=== PATIENT | female | born 1950 | race Caucasian/White ===

== ENCOUNTER 2021-02-05 23:39 | Inpatient (IN) | payer MEDICARE, OTHER ==
[~2021-02-05] VITALS: Ht 157.5 cm; Wt 71.7 kg
--- NOTE | 2021-02-05 23:59 | NUR ---
Medically clearedd by Dr Colunga.
[2021-02-06] MEDS ORDERED: METO50TA16 PO (00:26)
[2021-02-06] MEDS ORDERED: QUET25TA PO (00:26)
[2021-02-06] MEDS ORDERED: BUSP5TAB3 PO (00:26)
[2021-02-06] MEDS ORDERED: ATOR10TA PO (00:26)
[2021-02-06] MEDS ORDERED: PARO10TA4 PO (00:26)
[2021-02-06] MEDS ORDERED: LORA1TAB PO (00:26)
[2021-02-06] MEDS ORDERED: GABA600T12 PO (00:26)
[2021-02-06] MEDS ORDERED: LEVO100T10 PO (00:26)
--- NOTE | 2021-02-06 01:25 | NUR ---
Transferred to MHU room 138. Patient stable on transport, no signs of distress, no SOB. Patient remained alert and pleasant. All belongings transferred with the patient. All paperwork given to receiving nurse.
[2021-02-06] MEDS ORDERED: MAGNESIUM HYDROXIDE 30 ML LIQUID UDC PO PRN (02:00)
--- NOTE | 2021-02-06 02:01 | NUR ---
Admitted patient to MHU from ER via gurney accompanied by staff nurse.Patient alert ,calm and pleasant at this time.No s/s of distress noted.Dx of Major depressive disorder.Patient on 5150 under the care of and . According to 5150 Patient attempted to kill herself by OD of her lorazepam.Patients reports she has had 4 attempts in the past.Upon assessment patient denies SI/SH at this time. Contracts for safety.Body assessment done.No skin breakdown,ambulates.Safety measures in place. VSS .Will continue to monitor.
[2021-02-06] MEDS: LORAZEPAM 1 MG TABLET PO PRN ×3 (02:09→21:53)
[2021-02-06] MEDS: ACETAMINOPHEN 325 MG TABLET PO PRN ×2 (02:51→20:49)
[2021-02-06 07:30] VITALS: BP 176/85
--- NOTE | 2021-02-06 08:34 | NUR ---
Firearms Report: Insurance Instructor completed and submitted a [employer] firearms report for 5150 danger to self certifications. A copy of report has been placed in patient chart.
--- NOTE | 2021-02-06 10:30 | NUR ---
JAGUAR Family Contact: JAGUAR called patient's sister, Karoline ([phone]) to discuss treatment and discharge plan, however unable to reach at this time and SW left a voicemail for a return call.
[2021-02-06] MEDS: MAG HYDROX/AL HYDROX/SIMETH 30 ML LIQUID UDC PO PRN ×2 (10:41→17:46)
--- NOTE | 2021-02-06 10:48 | NUR ---
JAGUAR Initial Discharge Plan: Patient currently resides at home [address] [place] [address] ([phone]) with her family and sister, Karoline ([phone]). Patient is requesting to return home upon discharge. Karoline stated that they would like the patient to return home in a stable condition. JAGUAR will continue to work with the patient, family, and MD to coordinate a safe and proper discharge plan.
--- NOTE | 2021-02-06 10:49 | NUR ---
SW Family Contact: SW spoke with patient's sister Karoline ([phone]) and discussed treatment and discharge plan. Karoline stated they would like the patient to return home once stable.
--- NOTE | 2021-02-06 10:55 | NUR ---
Brief Substance Abuse Intervention: Patient was provided with a brief substance abuse intervention for medication abuse and referred to the following substance abuse programs: [facility]stance Abuse Self-helpline ([phone]); [facility] [address] [place] [address] ([phone]); [facility] [address] [facility] [address] ([phone]); [facility] ([phone]); [facility] ([phone]); [facility] ([phone]); [facility] ([phone]).
[2021-02-06] MEDS: METOPROLOL TARTRATE 50 MG TABLET PO SCH (15:25)
[2021-02-06] MEDS: GABAPENTIN 300 MG CAPSULE PO SCH (15:25)
[2021-02-06 16:11] VITALS: BP 133/77
[2021-02-06 20:31] VITALS: BP 164/74
[2021-02-06] MEDS: MIRTAZAPINE 15 MG TABLET PO SCH (20:49)
--- NOTE | 2021-02-06 22:00 | NUR ---
Received pt awake, alert andorientedx3. Pt can make her needs know. Pt given Ativan prn at 2152h for anxiousness because of her roomate. Pt was given prn milk of magnesia at 2040h as per pt request and at 2048h Tylenol for stomach pain. Pt tolerated it well. Safety and comfort provided, Will continue to monitor.
[2021-02-06 22:30] VITALS: BP 145/76
[2021-02-07] MEDS: LEVOTHYROXINE SODIUM 100 MCG TABLET PO SCH (06:07)
--- NOTE | 2021-02-07 06:17 | NUR ---
Pt slept 7.45 h. Pt in no acute distress. .Prescribed medication given and pt tolerated it well. Prn medications like Milk of magnesia, tylenol and Ativan were given. Pt tolerated it well . Pt stable and vital signs within normal limit. Pt compliant with care. Safety and comfort provided. All needs are met. Will endorse to incoming nurse for continuity of care.
[2021-02-07 07:30] VITALS: BP 145/82
[2021-02-07] MEDS ORDERED: ATORVASTATIN 10 MG TABLET PO SCH (09:00)
[2021-02-07] MEDS: GABAPENTIN 300 MG CAPSULE PO SCH (09:40)
[2021-02-07] MEDS: METOPROLOL TARTRATE 50 MG TABLET PO SCH (09:43)
[2021-02-07] MEDS: MAG HYDROX/AL HYDROX/SIMETH 30 ML LIQUID UDC PO PRN (14:44)
[2021-02-07 16:56] VITALS: BP 148/73
--- NOTE | 2021-02-07 17:55 | NUR ---
Gps/School Psychometrist- Had been redirectable, compliant with her routine medications, verbalized feelings and needs, attended part of her group therapy. Complained of upset stomach mylanta 30 ml was given po, verbalized adequate relief.
[2021-02-07 20:02] VITALS: BP 124/60
[2021-02-07] MEDS: MIRTAZAPINE 15 MG TABLET PO SCH (20:02)
[2021-02-07] MEDS: ACETAMINOPHEN 325 MG TABLET PO PRN (21:35)
--- NOTE | 2021-02-08 06:25 | NUR ---
Pt very pleasant and compliant with medications. Tolerated all medications well. No acute distress noted. Slept a total of 7 hours. Safety precautions kept in place. No other issues or concerns noted, will endorse to day shift.
[2021-02-08] MEDS: LEVOTHYROXINE SODIUM 100 MCG TABLET PO SCH (06:43)
[2021-02-08 07:30] VITALS: BP 162/69
[2021-02-08] MEDS: METOPROLOL TARTRATE 50 MG TABLET PO SCH (08:50)
[2021-02-08] MEDS: GABAPENTIN 300 MG CAPSULE PO SCH (08:50)
[2021-02-08] MEDS: LORAZEPAM 1 MG TABLET PO PRN (11:36)
[2021-02-08] MEDS: LISINOPRIL 5 MG TABLET PO SCH (11:42)
[2021-02-08] MEDS: ACETAMINOPHEN 325 MG TABLET PO PRN ×2 (13:02→20:45)
--- NOTE | 2021-02-08 16:00 | NUR ---
Gps/Latin Dancer- Adequate relief from her headache after her tylenol 650 mg.po. Remains in bed most of the afternoon, making her needs known to the staff. Interacting fairly well with her roommate.
[2021-02-08 16:59] VITALS: BP 151/72
[2021-02-08 20:06] VITALS: BP 138/67
[2021-02-08] MEDS: ATORVASTATIN 10 MG TABLET PO SCH (20:35)
[2021-02-08] MEDS: MIRTAZAPINE 15 MG TABLET PO SCH (20:35)
--- NOTE | 2021-02-09 01:25 | NUR ---
RECEIVED PATIENT SITTING QUIETLY IN HER ROOM.PLEASANT UPON APPROACH. COMPLIANT WITH MEDICATIONS.VISUAL CHECKS MADE ON HER FOR SAFETY. WILL CONTINUE TO MONITOR.
--- NOTE | 2021-02-09 06:40 | NUR ---
SHE SLEPT FOR 6:45 HOURS.
[2021-02-09] MEDS: LEVOTHYROXINE SODIUM 100 MCG TABLET PO SCH (06:44)
[2021-02-09 07:30] VITALS: BP 136/72
[2021-02-09] MEDS: GABAPENTIN 300 MG CAPSULE PO SCH (08:21)
[2021-02-09] MEDS: METOPROLOL TARTRATE 50 MG TABLET PO SCH (08:22)
[2021-02-09] MEDS: LISINOPRIL 5 MG TABLET PO SCH (08:22)
[2021-02-09] MEDS: LORAZEPAM 1 MG TABLET PO PRN (15:12)
[2021-02-09] MEDS: FLUTICASONE PROP NASAL SPRAY 16 GM BOTTLE NS SCH (15:45)
[2021-02-09 16:00] VITALS: BP 145/61
[2021-02-09] MEDS: ATORVASTATIN 10 MG TABLET PO SCH (20:04)
[2021-02-09] MEDS: MIRTAZAPINE 15 MG TABLET PO SCH (20:04)
[2021-02-09 20:16] VITALS: BP 156/76
[2021-02-09] MEDS: TEMAZEPAM 7.5 MG CAPSULE PO PRN (21:23)
[2021-02-09] MEDS: ACETAMINOPHEN 325 MG TABLET PO PRN (21:23)
[2021-02-10] MEDS: LEVOTHYROXINE SODIUM 100 MCG TABLET PO SCH (06:07)
[2021-02-10 07:30] VITALS: BP 129/80
[2021-02-10] MEDS: GABAPENTIN 300 MG CAPSULE PO SCH (08:46)
[2021-02-10] MEDS: METOPROLOL TARTRATE 50 MG TABLET PO SCH (08:47)
[2021-02-10] MEDS: FLUTICASONE PROP NASAL SPRAY 16 GM BOTTLE NS SCH (08:47)
[2021-02-10] MEDS: LISINOPRIL 5 MG TABLET PO SCH (08:47)
[2021-02-10] MEDS: LORAZEPAM 1 MG TABLET PO PRN (15:04)
[2021-02-10] MEDS: ACETAMINOPHEN 325 MG TABLET PO PRN ×2 (15:04→22:38)
[2021-02-10 16:00] VITALS: BP 132/67
[2021-02-10] MEDS: BETAMET DP 0.05% AUGM CR 15 GM CREAM.GM. TOP SCH (17:44)
[2021-02-10 20:11] VITALS: BP 149/55
--- NOTE | 2021-02-10 20:30 | NUR ---
RECEIVED PATIENT IN HIS ROOM IN BED. SHE IS NOTED AWAKE A/O X 3. SHE APPEARS DEPRESSED, CONTINUE ISOLATIVE. MOOD IS LABILE AFFECT IS DEPRESSED; HOWEVER, SHE DENIED SI/HI/VH/AH/ SHE IS ABLE TO VERBALLY CFS. PATIENT FIXED ON GOING HOME. SHE STATED, "I WILL NOT BE ABLE TO SLEEP WELL UNTIL I GO HOME". PATIENT WAS REASSURED FOR HER SAFETY. SAFETY AND FALL PRECAUTION IN PLACE. WILL CONTINUE TO MONITOR.
[2021-02-10] MEDS: ATORVASTATIN 10 MG TABLET PO SCH (20:53)
[2021-02-10] MEDS: MIRTAZAPINE 15 MG TABLET PO SCH (20:53)
[2021-02-10] MEDS: TEMAZEPAM 7.5 MG CAPSULE PO PRN (22:39)
[2021-02-11] MEDS: LEVOTHYROXINE SODIUM 100 MCG TABLET PO SCH (06:07)
[2021-02-11 07:30] VITALS: BP 151/73
--- NOTE | 2021-02-11 07:30 | NUR ---
Received report from SERGIO Flores. All questions, comments, and concerns were addressed. Received patient awake, in her assigned room. Bed is in low and locked position.
[2021-02-11] MEDS: FLUTICASONE PROP NASAL SPRAY 16 GM BOTTLE NS SCH (09:34)
[2021-02-11] MEDS: GABAPENTIN 300 MG CAPSULE PO SCH (09:34)
[2021-02-11] MEDS: BETAMET DP 0.05% AUGM CR 15 GM CREAM.GM. TOP SCH ×2 (09:35→16:07)
[2021-02-11] MEDS: LISINOPRIL 5 MG TABLET PO SCH (09:35)
[2021-02-11] MEDS: METOPROLOL TARTRATE 50 MG TABLET PO SCH (09:35)
--- NOTE | 2021-02-11 10:55 | NUR ---
Court Hearing: Patient's court hearing is today and it was upheld for GD and danger to self.
[2021-02-11] MEDS: ACETAMINOPHEN 325 MG TABLET PO PRN ×2 (13:41→20:48)
[2021-02-11 15:28] VITALS: BP 162/81
[2021-02-11] MEDS: MAG HYDROX/AL HYDROX/SIMETH 30 ML LIQUID UDC PO PRN (16:07)
--- NOTE | 2021-02-11 19:45 | NUR ---
Patient alert oriented, no complain of pain, cooperative with medication and stayed at her room most of the evening, cont to monitor.
[2021-02-11 20:05] VITALS: BP 152/74
[2021-02-11] MEDS: MIRTAZAPINE 15 MG TABLET PO SCH ×2 (20:24→20:48)
[2021-02-11] MEDS: ATORVASTATIN 10 MG TABLET PO SCH (20:24)
[2021-02-11] MEDS: LORAZEPAM 1 MG TABLET PO PRN (20:48)
--- NOTE | 2021-02-11 20:52 | NUR ---
DR MILLS INCRESED REMERON TO 22.5MG, PATIENT RECEIVED 15MG EARLIER, GIVEN ADDITIONAL REMERON 7.5MG ONLY TOTAL 22.5MG.
[2021-02-11] MEDS: TEMAZEPAM 7.5 MG CAPSULE PO PRN (22:24)
--- NOTE | 2021-02-11 22:24 | NUR ---
Patient has episode of anxiety manifested unable to sleep, request for sleeping medication, will medicate as ordered, cont to monitor.
--- NOTE | 2021-02-12 05:55 | NUR ---
Patient aslept but arousable, slept for 6.30 hours, no further complain of anxiety and pain, patient calm and cooperative with care, cont to monitor.
[2021-02-12] MEDS: LEVOTHYROXINE SODIUM 100 MCG TABLET PO SCH (06:14)
[2021-02-12 07:30] VITALS: BP 148/75
[2021-02-12] MEDS: FLUTICASONE PROP NASAL SPRAY 16 GM BOTTLE NS SCH (09:58)
[2021-02-12] MEDS: GABAPENTIN 300 MG CAPSULE PO SCH (09:59)
[2021-02-12] MEDS: BETAMET DP 0.05% AUGM CR 15 GM CREAM.GM. TOP SCH ×2 (09:59→17:16)
[2021-02-12] MEDS: LISINOPRIL 5 MG TABLET PO SCH (10:00)
[2021-02-12] MEDS: METOPROLOL TARTRATE 50 MG TABLET PO SCH (10:01)
[2021-02-12 15:29] VITALS: BP 143/70
[2021-02-12 15:54] LABS: *BILIRUBIN,URIN NEGATIVE (NEGATIVE); *BLOOD, URINE NEGATIVE (NEGATIVE); *COLOR,URINE YELLOW (YELLOW); *KETONES,URINE NEGATIVE (NEGATIVE); *UROBILINOGEN,URINE 0.2 E.U./dl (NORMAL); LEUKOCYTE ESTERASE ,URINE 1+ (NEGATIVE); NITRITE, URINE NEGATIVE (NEGATIVE); PH,URINE 6.5 (5.0-8.0); UGLUCOSE NEGATIVE (NEGATIVE)
[2021-02-12 15:57] LABS: *CLARITY,URINE SLIGHTLY HAZY (CLEAR); BACTERIA,URINE FEW /HPF (NONE SEEN); RBC,URINE 0-3 /HPF (0-3); SQUAMOUS EPITHELIAL CELL,UR FEW /HPF (NONE SEEN)
--- NOTE | 2021-02-12 15:59 | NUR ---
SW Family Contact: SW spoke with patient's sister Karoline ([phone]) and discussed updated treatment and discharge plan.
[2021-02-12] MEDS: ACETAMINOPHEN 325 MG TABLET PO PRN ×2 (16:34→22:23)
[2021-02-12] MEDS: LORAZEPAM 1 MG TABLET PO PRN ×2 (16:34→22:23)
[2021-02-12] MEDS: CEphaleXIN 500 MG CAPSULE PO SCH (17:16)
--- NOTE | 2021-02-12 18:28 | NUR ---
Shift summary: Pt in assigned room A&Ox4, able to verbalize needs, calm upon approach at this time. Due medications given per order, pt adherent with medication regimen, no a/r noted. Pt reported feeling anxious and upset this afternoon, reassurance and redirection provided PRN, encouraged pt to express feelings. Pt requested PRN Ativan (for previously mentioned reasons) and Tylenol for pain, administered per order, no a/r noted. Upon interview today, pt denied SI/HI/AH/VH, was able to verbally contract for safety. Pt able to perform self care and ADLs. Pt able to safely ambulate. Pt reported ear discomfort, METAL BENCH PATTERNMAKER Magui Dunham made aware, new orders in place. UA collected per order, pt made aware of results and prescribed antibiotic, pt verbalized understanding. Safety ensured. Will endorse care to bandoleer packer nurse.
[2021-02-12] MEDS: ATORVASTATIN 10 MG TABLET PO SCH (20:25)
[2021-02-12] MEDS: MIRTAZAPINE 15 MG TABLET PO SCH (20:25)
[2021-02-12] MEDS: TEMAZEPAM 15 MG CAPSULE PO PRN (21:22)
[2021-02-12 21:46] VITALS: BP 129/57
[2021-02-13] MEDS: LEVOTHYROXINE SODIUM 100 MCG TABLET PO SCH (06:17)
--- NOTE | 2021-02-13 06:28 | NUR ---
PATIENT ALERT STAYED ON HER ROOM MOST OF THE NIGHT, PATIENT HAS EPISODE OF ANXIETY, AND INABILITY TO SLEEP, GIVEN SLEEPING PILL AND ATIVAN ORDERED WITH HELP. PATIENT HAD SHOWER TODAY.
[2021-02-13 07:30] VITALS: BP 144/76
--- NOTE | 2021-02-13 07:30 | NUR ---
Received report from SERGIO Barajas. All questions, comments, and concerns were addressed. Received patient asleep in her assigned bed. Bed is in low and locked position.
[2021-02-13 08:03] LABS: BASOPHILS # (AUTO) 0.1 K/uL (0.0-8.0); EOSINOPHILS # (AUTO) 0.2 K/uL (0.0-0.7); EOSINOPHILS % (AUTO) 3.9 % (0.0-7.0); HEMATOCRIT 39.5 % (31.2-41.9); HEMOGLOBIN 13.1 g/dL (10.9-14.3); LYMPHOCYTES # (AUTO) 2.6 K/uL (20.0-40.0); LYMPHOCYTES % (AUTO) 41.7 % (20.5-51.5); MEAN CORPUSCULAR HEMOGLOBIN 26.1 uug (24.7-32.8); MEAN CORPUSCULAR HGB CONC 33 g/dL (32.3-35.6); MEAN CORPUSCULAR VOLUME 78.7 fL (75.5-95.3); MONOCYTES # (AUTO) 0.5 K/uL (2.0-10.0); MONOCYTES % (AUTO) 8.1 % (0.0-11.0); NEUTROPHILS # (AUTO) 2.8 K/uL (1.8-8.9); NEUTROPHILS % (AUTO) 45.3 % (38.5-71.5); PLATELET COUNT (AUTO) 303 K/uL (179-408); RED BLOOD CELL COUNT(AUTO) 5.02 MIL/uL (3.63-4.92); WHITE BLOOD COUNT (AUTO) 6.3 K/uL (3.8-11.8)
[2021-02-13] MEDS: GABAPENTIN 300 MG CAPSULE PO SCH (08:08)
[2021-02-13] MEDS: LISINOPRIL 5 MG TABLET PO SCH (08:08)
[2021-02-13] MEDS: CEphaleXIN 500 MG CAPSULE PO SCH ×2 (08:09→16:05)
[2021-02-13] MEDS: METOPROLOL TARTRATE 50 MG TABLET PO SCH (08:09)
[2021-02-13] MEDS: BETAMET DP 0.05% AUGM CR 15 GM CREAM.GM. TOP SCH ×2 (08:10→16:05)
[2021-02-13] MEDS: FLUTICASONE PROP NASAL SPRAY 16 GM BOTTLE NS SCH (08:10)
[2021-02-13] MEDS: LORAZEPAM 1 MG TABLET PO PRN (13:01)
[2021-02-13] MEDS: ACETAMINOPHEN 325 MG TABLET PO PRN ×2 (13:01→21:12)
--- NOTE | 2021-02-13 14:30 | NUR ---
patient endorsed having 5 Bowel Movements since this AM. Denies blood in stool. Endorses cramping pain in the lower abdomen with gas pain. Patient reports she has a history of IBS and has been diagnosed with diverticulitis this year but has not followed up with a GI specialist. Magui Dunham, MALENA, notified. Orders given to obtain stool sample for C. Diff testing and Imodium 2 mg PO PRN for anti-diarrheal purposes. Stool sample collected by this journalists and other writers and sent to lab. Patient provided with education about Imodium, provided with physical copy of handout.
[2021-02-13] MEDS: LOPERAMIDE HCL 2 MG CAPSULE PO PRN (15:45)
[2021-02-13 16:00] VITALS: BP 120/47
--- NOTE | 2021-02-13 17:53 | NUR ---
patient is alert and oriented. she is guarded, withdrawn, anxious, and is cooperative and redirectable. she is dressed appropriately in her own clothing and has appropriate interaction with staff and peers. patient denies SI/HI, denies AH/VH. patient is adherent with medication, no adverse reaction noted. patient is able to communicate needs to staff. encouraged to participate in unit groups and therapeutic milieu.
[2021-02-13 20:04] VITALS: BP 135/78
[2021-02-13] MEDS: ATORVASTATIN 10 MG TABLET PO SCH (20:29)
[2021-02-13] MEDS: MIRTAZAPINE 15 MG TABLET PO SCH (20:29)
[2021-02-13] MEDS: TEMAZEPAM 15 MG CAPSULE PO PRN (21:13)
[2021-02-14] MEDS: LEVOTHYROXINE SODIUM 100 MCG TABLET PO SCH (06:15)
--- NOTE | 2021-02-14 06:36 | NUR ---
patient is alert and oriented. Compliant with medication, no adverse reaction noted. she denies SI/HI. patient is able to communicate needs to staff. Patient requested sleeping aide, PRN administered per order. Slept 7.45 hours. All needs were met and attended to. Safety measures and checks remain intact.
--- NOTE | 2021-02-14 07:15 | NUR ---
Received pt. sleeping easily arousable. at 0930 compliant with medications. Denies SI and HI. AAOx3. Ambulatory.
[2021-02-14 07:30] VITALS: BP 123/83
[2021-02-14] MEDS: FLUTICASONE PROP NASAL SPRAY 16 GM BOTTLE NS SCH (08:56)
[2021-02-14] MEDS: GABAPENTIN 300 MG CAPSULE PO SCH (08:57)
[2021-02-14] MEDS: LISINOPRIL 5 MG TABLET PO SCH (08:57)
[2021-02-14] MEDS: BETAMET DP 0.05% AUGM CR 15 GM CREAM.GM. TOP SCH ×2 (08:57→16:32)
[2021-02-14] MEDS: CEphaleXIN 500 MG CAPSULE PO SCH ×2 (08:58→16:32)
[2021-02-14] MEDS: METOPROLOL TARTRATE 50 MG TABLET PO SCH (08:58)
[2021-02-14] MEDS: LORAZEPAM 1 MG TABLET PO PRN (09:48)
[2021-02-14] MEDS: ACETAMINOPHEN 325 MG TABLET PO PRN ×2 (09:48→16:59)
--- NOTE | 2021-02-14 10:59 | NUR ---
JAGUAR Coordination of Care: Patient will be following up with her primary care physician Dr. Heather Tucker [address] [facility], [place], [address] ([phone]) and has an appointment scheduled for her on 02/18/21 at 11AM. JAGUAR spoke with Maryam display specialist and requested for a referral for outpatient psychiatrist.
[2021-02-14] MEDS: LOPERAMIDE HCL 2 MG CAPSULE PO PRN (15:27)
[2021-02-14 16:00] VITALS: BP 121/45
--- NOTE | 2021-02-14 18:44 | NUR ---
left pt. in bed resting comfortably no c/of pain compliant with meds, and nursing care. Will continue with care plan.
[2021-02-14 20:05] VITALS: BP 127/54
[2021-02-14] MEDS: MIRTAZAPINE 15 MG TABLET PO SCH (20:50)
[2021-02-14] MEDS: ATORVASTATIN 10 MG TABLET PO SCH (20:50)
[2021-02-14] MEDS: TEMAZEPAM 15 MG CAPSULE PO PRN (21:48)
--- NOTE | 2021-02-15 05:35 | NUR ---
Pt rested well in between care; no acute distress; no SI verbalized; safety maintained; continue to monitor; continue plan of care. pt slept 7 hours
[2021-02-15] MEDS: LEVOTHYROXINE SODIUM 100 MCG TABLET PO SCH (06:04)
[2021-02-15 07:30] VITALS: BP 133/55
--- NOTE | 2021-02-15 07:38 | NUR ---
RECEIVED PATIENT AOX4 CALM COOPERATIVE DENIES SI AND HI, PATIENT COMPLIANT WITH MEDICATION PATIENT ON DC PLANNING GOING BACK TO HOME, MEDICATION PRESCRIPTION AND TRANSPORTATION WAS ARRANGE, MONITORED [id number] NO SIGN OF DISTRESS
--- NOTE | 2021-02-15 08:24 | NUR ---
JAGUAR Discharge Note: Patient will be discharged home [address] [address] ([phone]) with her family and sister, Karoline ([phone]). Patient will be provided with Taxi Voucher at 2:30PM. Patient is alert and oriented x4 and is aware and agreeable with discharge plan. Patient denies suicidal or homicidal ideation. Patient presents with euthymic mood and congruent affect. Patient will be following up with her primary care physician Dr. Heather Tucker [address] [place], [address] ([phone]) and has an appointment scheduled for her on 02/18/21 at 11AM. JAGUAR spoke with Maryam digital marketing strategist and requested for a referral for outpatient psychiatrist. Patient was provided with a brief substance abuse intervention for medication abuse and referred to the following substance abuse programs: [facility]stance Abuse Self[facility]pl[facility] ([phone]); [facility] [address] [place] [address] ([phone]); [facility] [address] [facility] [address] ([phone]); [facility] ([phone]); [facility] ([phone]); [facility] ([phone]); [facility] ([phone]).
[2021-02-15] MEDS: CEphaleXIN 500 MG CAPSULE PO SCH (09:08)
[2021-02-15] MEDS: GABAPENTIN 300 MG CAPSULE PO SCH (09:08)
[2021-02-15] MEDS: METOPROLOL TARTRATE 50 MG TABLET PO SCH (09:08)
[2021-02-15 09:09] VITALS: BP 133/55
[2021-02-15] MEDS: FLUTICASONE PROP NASAL SPRAY 16 GM BOTTLE NS SCH (09:09)
[2021-02-15] MEDS: BETAMET DP 0.05% AUGM CR 15 GM CREAM.GM. TOP SCH (09:09)
[2021-02-15] MEDS: LISINOPRIL 5 MG TABLET PO SCH (09:09)
[2021-02-15] MEDS: ACETAMINOPHEN 325 MG TABLET PO PRN (11:04)
[2021-02-15] MEDS: LORAZEPAM 1 MG TABLET PO PRN (11:04)
[2021-02-15] MEDS: MAG HYDROX/AL HYDROX/SIMETH 30 ML LIQUID UDC PO PRN (14:16)
--- NOTE | 2021-02-15 14:20 | NUR ---
Patient being discharged home. Alert and oriented x 4. Patient is calm and cooperative. Discharge teaching and education provided. Patient stable. No thoughts of SI or HI. Follow up instructions included. Patient verbalized understanding of plan of care.
== END 2021-02-15 14:30 | disposition home or self-care (01) | DRG 881 ==
LOC: ER 23:46 → GPS 02-06 01:00
PROVIDERS: ADMIT Psychiatry & Neurology Psychiatry; ATTEND Nurse Practitioner Acute Care
DX: F32.9 Major depressive disorder, single episode, unspecified (principal); B95.1 Streptococcus, group B, as the cause of diseases classified elsewhere; N39.0 Urinary tract infection, site not specified; R45.851 Suicidal ideations; T42.4X2D Poisoning by benzodiazepines, intentional self-harm, subsequent encounter; E03.9 Hypothyroidism, unspecified; E78.1 Pure hyperglyceridemia; J44.9 Chronic obstructive pulmonary disease, unspecified; E11.9 Type 2 diabetes mellitus without complications; E78.5 Hyperlipidemia, unspecified; I10 Essential (primary) hypertension; K58.0 Irritable bowel syndrome with diarrhea
CPT/HCPCS: 36415; 71045; 85025; 87077; 87086; 93005; A4663; J3535